=== PATIENT | female | born 1960 | race African-American/Black ===

== ENCOUNTER 2018-05-29 09:25 | Inpatient (IN) ==
[2018-05-29] MEDS ORDERED: methylPREDNISolone SOD SUC 125 MG/2 ML VIAL IV STA (09:48)
[2018-05-29] MEDS ORDERED: ALBUTEROL/IPRATROPIUM 3 ML NEB RESP TX STA (09:48)
[2018-05-29] MEDS ORDERED: FUROSEMIDE 100 MG/10 ML VIAL IV STA (09:48)
[2018-05-29] MEDS ORDERED: FUROSEMIDE 40 MG/4 ML VIAL ONE (10:02)
[2018-05-29 10:29] LABS: Basophils % 0.4 % (0.0-0.8); Eosinophils # 0.2 10*3/uL (0.0-0.87); Eosinophils % 3.2 % (0.00-10.9); Hematocrit 37.3 VOL% (35.7-47.0); Hemoglobin 11.8 GM/DL (12.0-16.0); Immature Granulocytes % 0.6 %; Immature Granulocytes Absolute 0.04 #; Lymphocytes # 1.9 10*3/uL (1.4-4.0); Lymphocytes % 27.7 % (21.3-54.2); Mean Corpuscular HGB Conc 31.6 GM/DL (32-36); Mean Corpuscular Hemoglobin 24 PG (27-34); Mean Corpuscular Volume 77.2 FL (87-102); Mean Platelet Volume 9.7 FL (9.6-12.0); Monocytes # 0.8 10*3/uL (0.11-0.8); Monocytes % 11.3 % (1.7-12.7); Neutrophils # 3.9 10*3/uL (1.4-7.4); Neutrophils % 56.8 % (38.7-73.9); Platelet Count 260 T/CUMM (130-400); Red Blood Count 4.83 MC/CUMM (3.8-5.5); White Blood Count 6.8 T/CUMM (4-12)
[2018-05-29 10:40] LABS: INR 0.9; PT Patient Result 10.1 SECS
[2018-05-29 10:43] LABS: Apearance,Urine CLEAR (Clear); Bilirubin,Urine Negative (Negative); Blood, Urine Negative (Negative); Glucose,Urine (UA) Negative (Negative); Ketones,Urine Negative (Negative); Mucus,Urine Occasional /LPF (Occasional); Nitrite,Urine Negative (Negative); Protein,Urine Negative; RBC,Urine 2 /HPF (0-4); Squamous Epithelial Cell,Urine Occasional /HPF (0-10); Urine Color Yellow (Yellow); WBC,Urine 1 /HPF (0-6)
[2018-05-29 11:07] LABS: Albumin 3.1 G/DL (3.4-5.0); Bilirubin,Total 0.8 MG/DL (0.2-1.0); Calcium 8.5 MG/DL (8.5-10.1); Osmolality,Calculated 281.3 MOS/KG (273-304); Potassium 3.7 MMOL/L (3.5-5.1); Total Protein 6.8 G/DL (6.4-8.3)
[2018-05-29] MEDS ORDERED: ENOXAPARIN 100 MG/ML SYRINGE SUBCUT STA (11:14)
[2018-05-29] MEDS ORDERED: ASPIRIN EC 325 MG TABLET PO STA (11:14)
[2018-05-29] MEDS ORDERED: ONDANSETRON 4 MG/2 ML VIAL IV PRN (12:36)
[2018-05-29] MEDS ORDERED: ACETAMINOPHEN 325 MG TABLET PO PRN (12:36)
[2018-05-29] MEDS ORDERED: MORPHINE 4 MG/1 ML VIAL IV PRN (12:36)
[2018-05-29] MEDS ORDERED: ALBUTEROL 2.5 MG/3 ML NEB RESP TX PRN (13:32)
[2018-05-29] MEDS ORDERED: BENZONATATE 100 MG CAPSULE PO PRN (13:32)
[2018-05-29] MEDS ORDERED: GLUCAGON 1 MG VIAL IM PRN (13:45)
[2018-05-29] MEDS ORDERED: DEXTROSE 50% 25 GM/50 ML SYRINGE IV PRN (13:45)
[2018-05-29 14:32] LABS: Troponin I 0.291 NG/ML (0.00-0.045)
[2018-05-29] MEDS: SODIUM CHLORIDE 0.9% 1,000 ML IV SCH (14:40)
[2018-05-29] MEDS: NITROGLYCERIN 2% OINT 1 INCH/GM PACK TOP SCH ×2 (14:40→17:57)
[2018-05-29] MEDS: ALBUTEROL/IPRATROPIUM 3 ML NEB RESP TX SCH ×2 (16:00→19:09)
[2018-05-29] MEDS: INSULIN LISPRO 100 UNIT/ML SUBCUT SCH (17:57)
[2018-05-29] MEDS: FERROUS SULFATE 325 MG TABLET PO SCH (20:33)
[2018-05-29] MEDS: DOCUSATE SODIUM 100 MG CAPSULE PO SCH ×2 (20:33)
[2018-05-29] MEDS: POTASSIUM CHLORIDE 8 MEQ CAPSULE PO SCH (20:33)
[2018-05-29] MEDS: ENOXAPARIN 80 MG/0.8 ML SYRINGE SUBCUT SCH (20:33)
[2018-05-29] MEDS ORDERED: CARVEDILOL 12.5 MG TABLET PO SCH (21:00)
[2018-05-30] MEDS: ALBUTEROL/IPRATROPIUM 3 ML NEB RESP TX SCH ×4 (00:26→11:00)
[2018-05-30] MEDS: NITROGLYCERIN 2% OINT 1 INCH/GM PACK TOP SCH ×2 (00:38→05:46)
[2018-05-30] MEDS: SODIUM CHLORIDE 0.9% 1,000 ML IV SCH (01:17)
[2018-05-30 05:46] LABS: Albumin 2.8 G/DL (3.4-5.0); Bilirubin,Total 0.9 MG/DL (0.2-1.0); Calcium 8.5 MG/DL (8.5-10.1); Osmolality,Calculated 285.4 MOS/KG (273-304); Potassium 3.7 MMOL/L (3.5-5.1); Risk Ratio 2.88; Total Protein 6.5 G/DL (6.4-8.3); VLDL CHOLESTEROL 24.2 MG/DL
[2018-05-30 06:54] LABS: Basophils % 0.1 % (0.0-0.8); Hematocrit 32.5 VOL% (35.7-47.0); Hemoglobin 10.4 GM/DL (12.0-16.0); Immature Granulocytes % 0.6 %; Immature Granulocytes Absolute 0.07 #; Lymphocytes # 1.1 10*3/uL (1.4-4.0); Mean Corpuscular Hemoglobin 25 PG (27-34); Mean Corpuscular Volume 76.7 FL (87-102); Mean Platelet Volume 10.5 FL (9.6-12.0); Neutrophils # 10.1 10*3/uL (1.4-7.4); Neutrophils % 82.3 % (38.7-73.9); Platelet Count 276 T/CUMM (130-400); Red Blood Count 4.24 MC/CUMM (3.8-5.5); White Blood Count 12.3 T/CUMM (4-12)
[2018-05-30 07:48] VITALS: BP 138/56
[2018-05-30] MEDS: POTASSIUM CHLORIDE 8 MEQ CAPSULE PO SCH (09:00)
[2018-05-30] MEDS ORDERED: hydroCHLOROthiazide 25 MG TABLET PO SCH (09:00)
[2018-05-30] MEDS ORDERED: PANTOPRAZOLE 40 MG TABLET PO SCH ×2 (09:00→12:00)
[2018-05-30] MEDS ORDERED: amLODIPine 10 MG TABLET PO SCH (09:00)
[2018-05-30] MEDS ORDERED: ASPIRIN EC 325 MG TABLET PO SCH (09:00)
[2018-05-30] MEDS ORDERED: CARVEDILOL 25 MG TABLET PO SCH (09:00)
[2018-05-30] MEDS ORDERED: LOSARTAN 50 MG TABLET PO SCH (09:00)
[2018-05-30] MEDS: DOCUSATE SODIUM 100 MG CAPSULE PO SCH (09:00)
[2018-05-30] MEDS: FERROUS SULFATE 325 MG TABLET PO SCH (09:01)
[2018-05-30] MEDS: ENOXAPARIN 80 MG/0.8 ML SYRINGE SUBCUT SCH (09:03)
[2018-05-30] MEDS: INSULIN LISPRO 100 UNIT/ML SUBCUT SCH (09:03)
[2018-05-30] MEDS ORDERED: FLUTICASONE/SALMETEROL 250-50 DISKUS 14 DOSE INH SCH (09:30)
[2018-05-30] MEDS ORDERED: CHOLECALCIFEROL 5,000 UNIT TABLET PO SCH (12:00)
[2018-05-30] MEDS ORDERED: MULTIVITAMIN (CENTRUM) TABLET PO SCH (12:00)
== END 2018-05-30 11:53 | disposition home or self-care (01) | DRG 202 ==
LOC: N.ED 09:25 → N.EDINP 11:15 → N.2W 11:55 → N.TELEN 14:27
PROVIDERS: ADMIT Internal Medicine; ATTEND Internal Medicine